=== PATIENT | female | born 1965 | race Caucasian/White ===

== ENCOUNTER 2017-07-10 19:16 | Inpatient (IN) | payer MEDICAID ==
[~2017-07-10] VITALS: Ht 172.7 cm; Wt 78.5 kg
[2017-07-10] MEDS ORDERED: GABA-533 PO (19:28)
[2017-07-10] MEDS ORDERED: LORA2TAB2 PO (19:28)
[2017-07-10] MEDS ORDERED: OXYC10 PO (19:28)
[2017-07-10] MEDS ORDERED: MILN50TA PO (19:28)
[2017-07-10] MEDS ORDERED: DULO30CA2 PO (19:28)
[2017-07-10] MEDS ORDERED: BACITRACIN 0.9 GM PACKET OINTMENT TP ONE (19:30)
[2017-07-10] MEDS ORDERED: PERTUSS(ACELL),DIPH,TET VAC/PF 0.5 ML VIAL IM ONE (19:30)
[2017-07-10] MEDS ORDERED: LORazepam 2 MG/ML VIAL IM ONE (19:45)
[2017-07-10 19:56] LABS: BASOPHILS # (AUTO) 0.14 K/uL (0.00-0.20); BASOPHILS % (AUTO) 2.6 % (0.0-2.0); EOSINOPHILS # (AUTO) 0.32 K/uL (0.00-0.70); EOSINOPHILS % (AUTO) 5.86 % (1.0-6.0); HEMATOCRIT 39.1 % (36-46); HEMOGLOBIN 12.8 g/dL (12.0-16.0); LYMPHOCYTES # (AUTO) 1.5 K/uL (1.0-4.8); LYMPHOCYTES % (AUTO) 27.5 % (22.0-44.0); MEAN CORPUSCULAR HEMOGLOBIN 28.7 pg (26.0-34.0); MEAN CORPUSCULAR HGB CONC 32.9 G/dL (31.0-37.0); MEAN CORPUSCULAR VOLUME 87 fL (80-100); MONOCYTES # (AUTO) 0.5 K/uL (0.1-1.0); MONOCYTES % (AUTO) 8.6 % (2.0-9.0); NEUTROPHILS % (AUTO) 55.5 % (40.0-70.0); PLATELET COUNT (AUTO) 248 K/uL (150-450); RED BLOOD CELL COUNT(AUTO) 4.48 MIL/uL (4.00-5.20); RED CELL DISTRIBUTION WIDTH 13.3 % (11.5-14.5); WHITE BLOOD COUNT (AUTO) 5.4 K/uL (4.5-11.0)
[2017-07-10 20:09] LABS: ANION GAP 8 mmol/L (8-16); CALCIUM, TOTAL 9.3 mg/dL (8.8-10.5); CARBON DIOXIDE 26 mmol/L (22-29); CHLORIDE 105 mmol/L (98-107); CREATININE 0.95 mg/dL (0.60-1.30); GLOMERULAR FILTR. RATE CALC > 60 mL/min (>60); POTASSIUM 3.9 mmol/L (3.5-5.1); SODIUM SERUM 139 mmol/L (136-145); UREA NITROGEN, BLOOD 16 mg/dL (7-18)
[2017-07-10 20:23] LABS: ALANINE AMINOTRANSFERASE 32 U/L (12-78); ALBUMIN 3.7 g/dL (3.4-5.0); ASPARTATE AMINOTRANSFERASE 25 U/L (15-37); BILIRUBIN,TOTAL 0.3 mg/dL (0.1-1.0); TOTAL PROTEIN, SERUM 7.5 g/dL (6.4-8.2)
[2017-07-10] MEDS ORDERED: MORPHINE SULFATE 4 MG/ML SYRINGE IVP ONE (21:00)
[2017-07-10] MEDS ORDERED: MORPHINE SULFATE 10 MG/ML SYRINGE IVP ONE (21:00)
[2017-07-10] MEDS ORDERED: ONDANSETRON HCL 4 MG/2 ML VIAL IVP ONE (21:00)
[2017-07-10 21:21] LABS: CHOL/HDL RATIO 5.3 (3.9-5.7); THYROID STIMULATING HORMONE 1.62 uIU/mL (0.36-3.74)
[2017-07-10 22:15] VITALS: BP 115/61
[2017-07-11] MEDS: IBUPROFEN 400 MG TABLET PO PRN ×2 (00:03→08:18)
[2017-07-11 03:00] VITALS: BP 116/67
[2017-07-11] MEDS: ZOLPIDEM TARTRATE 10 MG TABLET PO PRN (03:07)
[2017-07-11] MEDS: ACETAMINOPHEN 325 MG TABLET PO PRN ×2 (03:08→12:32)
[2017-07-11] MEDS: LORazepam 2 MG TABLET PO PRN ×3 (08:18→20:23)
[2017-07-11] MEDS: BACITRACIN 28.4 GM OINTMENT TP SCH ×2 (08:18→16:26)
[2017-07-11 09:04] VITALS: BP 152/65
[2017-07-11 10:54] VITALS: BP 125/73
[2017-07-11] MEDS ORDERED: CELECOXIB 200 MG CAPSULE PO SCH ×2 (14:45)
[2017-07-11] MEDS: CELECOXIB 200 MG CAPSULE PO SCH (16:25)
[2017-07-11 16:30] VITALS: BP 108/69
[2017-07-11] MEDS ORDERED: DULoxetine HCL 60 MG CAPSULE PO ONE (18:00)
[2017-07-11] MEDS ORDERED: FLUoxetine HCL 20 MG CAPSULE PO ONE (18:00)
[2017-07-11] MEDS: GABAPENTIN 400 MG CAPSULE PO SCH (20:23)
[2017-07-11] MEDS: HALOPERIDOL 5 MG TABLET PO PRN (22:43)
[2017-07-12 02:32] VITALS: BP 105/62
[2017-07-12] MEDS: CELECOXIB 200 MG CAPSULE PO SCH ×2 (08:35→16:32)
[2017-07-12] MEDS: DULoxetine HCL 60 MG CAPSULE PO SCH (08:35)
[2017-07-12] MEDS: IBUPROFEN 400 MG TABLET PO PRN (08:36)
[2017-07-12] MEDS: BACITRACIN 28.4 GM OINTMENT TP SCH ×2 (08:37→17:00)
[2017-07-12] MEDS: FLUoxetine HCL 20 MG CAPSULE PO SCH (08:41)
[2017-07-12 09:12] VITALS: BP 126/86
[2017-07-12] MEDS: LORazepam 2 MG TABLET PO PRN ×3 (09:53→22:34)
[2017-07-12] MEDS ORDERED: IBUPROFEN 400 MG TABLET PO PRN (14:15)
[2017-07-12] MEDS: ACETAMINOPHEN 325 MG TABLET PO PRN (14:40)
[2017-07-12 16:14] VITALS: BP 137/87
[2017-07-12] MEDS: HALOPERIDOL 5 MG TABLET PO PRN ×2 (16:33→20:46)
[2017-07-12] MEDS: GABAPENTIN 400 MG CAPSULE PO SCH (20:23)
[2017-07-12] MEDS: ZOLPIDEM TARTRATE 10 MG TABLET PO PRN (21:26)
[2017-07-13 00:01] VITALS: BP 108/86
[2017-07-13 08:02] LABS: HEMOGLOBIN A1C 5.8 % (4.5-6.2)
[2017-07-13 08:07] VITALS: BP 109/70
[2017-07-13] MEDS: LORazepam 2 MG TABLET PO PRN (08:18)
[2017-07-13] MEDS: FLUoxetine HCL 20 MG CAPSULE PO SCH ×2 (08:18→08:33)
[2017-07-13] MEDS: DULoxetine HCL 60 MG CAPSULE PO SCH (08:18)
[2017-07-13] MEDS: BACITRACIN 28.4 GM OINTMENT TP SCH (08:18)
[2017-07-13] MEDS: CELECOXIB 200 MG CAPSULE PO SCH (08:18)
[2017-07-13 08:46] LABS: THYROID STIMULATING HORMONE 1.94 uIU/mL (0.36-3.74)
[2017-07-13] MEDS ORDERED: FLUO-191 PO (10:31)
[2017-07-13] MEDS ORDERED: CELE200 PO (10:34)
== END 2017-07-13 11:45 | disposition home or self-care (01) | DRG 740 ==
LOC: EMS 19:19 → EDBD 19:19 → B2S 21:26
PROVIDERS: ADMIT Psychiatry & Neurology Child & Adolescent Psychiatry; ATTEND Psychiatry & Neurology Child & Adolescent Psychiatry
PROC: 0XQHXZZ Repair Left Wrist Region, External Approach (ICD-10-PCS; principal; 2017-07-10)
DX: F25.0 Schizoaffective disorder, bipolar type (principal); F32.9 Major depressive disorder, single episode, unspecified; E78.5 Hyperlipidemia, unspecified; G89.4 Chronic pain syndrome; S61.511A Laceration without foreign body of right wrist, initial encounter; F41.9 Anxiety disorder, unspecified; S61.512A Laceration without foreign body of left wrist, initial encounter; R00.0 Tachycardia, unspecified; Z79.899 Other long term (current) drug therapy; X78.1XXA Intentional self-harm by knife, initial encounter; Y93.89 Activity, other specified; Y92.89 Other specified places as the place of occurrence of the external cause; Y99.8 Other external cause status
CPT/HCPCS: 12002; 83036; 84443; 90471; 90715; 96372; 96374; 96375; 99285; G0480; J2060; J2270; J2405